=== PATIENT | male | born 1970 | race Caucasian/White ===

== ENCOUNTER 2018-09-13 17:45 | Emergency (ER) | payer OTHER ==
[~2018-09-13] VITALS: Ht 180.3 cm; Wt 81.6 kg
[2018-09-13 17:55] VITALS: BP 133/68; Ht 180.3 cm; Wt 81.6 kg
== END 2018-09-13 18:27 | disposition home or self-care (01) ==
LOC: ED 17:45
DX: T15.91XA Foreign body on external eye, part unspecified, right eye, initial encounter (principal); K21.9 Gastro-esophageal reflux disease without esophagitis; E78.00 Pure hypercholesterolemia, unspecified